=== PATIENT | male | born 2000 | race African-American/Black ===

== ENCOUNTER 2024-05-04 19:47 | Emergency (ER) | payer MEDICAID ==
[~2024-05-04] VITALS: Ht 177.8 cm; Wt 90.0 kg
[2024-05-04 19:57] VITALS: O2SAT 100
[2024-05-04] MEDS: MORPHINE SULFATE 4 MG/ML INJ (FOR IV/IM USE) IV ONE (19:58)
[2024-05-04] MEDS: TETANUS, DIPHTHERIA, PERTUSSIS VAC/PF 0.5ML (>10YR OLD) IM ONE (20:01)
[2024-05-04 20:04] VITALS: TEMP 37.11408; O2SAT 100
[2024-05-04 20:08] LABS: BASOPHILS % 1.6 % (0.0-2.0); EOSINOPHILS % 0.4 % (0.0-5.0); HEMATOCRIT. 44.2 % (42.0-52.0); HEMOGLOBIN. 14.2 g/dL (14.0-18.0); LYMPHOCYTES % 43.8 % (20.0-50.0); MEAN CORPUSCULAR HEMOGLOBIN 26.2 pg (28.0-32.0); MEAN CORPUSCULAR HGB CONC 32.1 g/dL (31.0-37.0); MEAN CORPUSCULAR VOLUME 81.4 fL (80.0-94.0); MEAN PLATELET VOLUME 8.3 fl (7.4-10.4); MONOCYTES % 5.7 % (2.0-8.0); NEUTROPHILS % 48.5 % (40.0-76.0); PLATELET 238 x1000/uL (130-400); RED BLOOD CELL COUNT 5.43 mill/uL (4.7-6.1); RED CELL DISTRIBUTION WIDTH 15.7 % (11.6-14.6); WHITE BLOOD COUNT 5.3 x1000/uL (4.5-11.0)
[2024-05-04 20:14] LABS: CHLORIDE 107 mEq/L (98-107); POTASSIUM 3.8 mEq/L (3.5-5.1); SODIUM 140 mEq/L (136-145)
[2024-05-04 20:15] LABS: CARBON DIOXIDE 22 mEq/L (21-32)
[2024-05-04 20:16] LABS: CALCIUM 9.6 mg/dL (8.7-10.4)
[2024-05-04] MEDS: CEFAZOLIN 1000MG PREMIX 50 ML IV ONE (20:18)
[2024-05-04 20:20] LABS: CREATININE 1.3 mg/dL (0.6-1.3); GLUCOSE 99 mg/dL (70-105); UREA NITROGEN BLOOD 8 mg/dL (9-23)
[2024-05-04 20:29] LABS: ETHANOL BLOOD < 10 mg/dL (<10)
[2024-05-04 20:30] VITALS: BP 188/162; PULSE 86; RESP 18
[2024-05-04] MEDS: FENTANYL CITRATE/PF 50MCG/ML 2ML VIAL IV ONE (20:30)
[2024-05-04 20:31] LABS: INR 0.9; PARTIAL THROMBOPLASTIN TIME 23.9 sec (23.4-31.0); PROTHROMBIN TIME 10.1 sec (9.6-11.0)
== END 2024-05-04 21:03 | disposition short-term general hospital (02) ==
LOC: ER 19:47
DX: S71.131A Puncture wound without foreign body, right thigh, initial encounter (principal); F12.10 Cannabis abuse, uncomplicated; W34.00XA Accidental discharge from unspecified firearms or gun, initial encounter; Y93.89 Activity, other specified; Y92.89 Other specified places as the place of occurrence of the external cause; Y99.8 Other external cause status
CPT/HCPCS: 80048; 80320; 85025; 85610; 85730; 86850; 86900; 86901; 36415; 71045; 90715; 90471; 96365; 96375; 99291; J3010; J0690; J2270; G0480